=== PATIENT | female | born 2000 | race Two or more races ===

== ENCOUNTER 2025-06-08 11:47 | Outpatient (CLI) | payer SELFPAY ==
[2025-06-08 15:34] LABS: Hematocrit 39.2 % (36.0-46.0); Hemoglobin 13.3 g/dL (12.2-16.2); Mean Corpuscular Hemoglobin 29.4 pg (28.0-32.0); Mean Corpuscular Volume 86.9 fL (80.0-100.0); Nucleated Red Blood Cells % 0.4 %
[2025-06-08 16:06] LABS: Thyroid Stimulating Hormone 2.41 uIU/mL (0.55-4.78)
[2025-06-08 16:14] LABS: Beta HCG, Quantitative 13212.9 mIU/mL (1.5-4.2)
[2025-06-08 16:20] LABS: Amphetamine Screen, Urine Neg (NEGATIVE); Barbiturate Scree,Urine Neg (NEGATIVE); Benzodiazephine Screen, Urine Neg (NEGATIVE); Cannabinoid Screen, Urine Neg (NEGATIVE); Cocaine Screen, Urine Neg (NEGATIVE); Opiate Scree,Urine Neg (NEGATIVE); Phencyclidine Screen, Urine Neg (NEGATIVE)
[2025-06-10 05:08] LABS: Chlamydia Trachomatis, NAA Negative (Negative); Neisseria gonorrhoeae, NAA Negative (Negative)
== END 2025-06-09 17:00 | disposition home or self-care (01) ==
LOC: LAB 11:47
PROVIDERS: ATTEND Obstetrics & Gynecology
DX: O23.40 Unspecified infection of urinary tract in pregnancy, unspecified trimester (principal); N39.0 Urinary tract infection, site not specified; Z31.430 Encounter of female for testing for genetic disease carrier status for procreative management; Z11.3 Encounter for screening for infections with a predominantly sexual mode of transmission; Z20.09 Contact with and (suspected) exposure to other intestinal infectious diseases; Z3A.00 Weeks of gestation of pregnancy not specified
CPT/HCPCS: 36415; 80307; 83036; 84144; 84443; 84702; 85025; 86703; 86762; 86780; 86787; 86850; 86900; 86901; 87086; 87340

== ENCOUNTER 2025-06-20 09:51 | Outpatient (CLI) | payer SELFPAY | END 2025-06-20 17:00 | disposition home or self-care (01) | LOC: LAB 09:51 | PROVIDERS: ATTEND Obstetrics & Gynecology | DX: O23.40 Unspecified infection of urinary tract in pregnancy, unspecified trimester (principal); N39.0 Urinary tract infection, site not specified; Z11.3 Encounter for screening for infections with a predominantly sexual mode of transmission; Z31.430 Encounter of female for testing for genetic disease carrier status for procreative management; Z20.09 Contact with and (suspected) exposure to other intestinal infectious diseases; Z3A.00 Weeks of gestation of pregnancy not specified | CPT/HCPCS: 82951 ==

== ENCOUNTER → 2025-07-20 | Outpatient (CLI) | payer SELFPAY ==
[2025-07-20 15:16] LABS: Hematocrit 37.0 % (36.0-46.0); Hemoglobin 12.9 g/dL (12.2-16.2); Mean Corpuscular Hemoglobin 29.9 pg (28.0-32.0); Mean Corpuscular Volume 86.0 fL (80.0-100.0); Nucleated Red Blood Cells % 0.1 %
[2025-07-22 03:07] LABS: Chlamydia Trachomatis, NAA Negative (Negative); Neisseria gonorrhoeae, NAA Negative (Negative)
== END | disposition home or self-care (01) ==
LOC: LAB 14:25
DX: Z34.80 Encounter for supervision of other normal pregnancy, unspecified trimester (principal); Z3A.00 Weeks of gestation of pregnancy not specified
CPT/HCPCS: 36415; 85025; 86780

== ENCOUNTER 2025-07-25 11:01 | Observation (INO) | payer SELFPAY ==
[2025-07-25] MEDS ORDERED: PREN-96 PO (11:22)
--- NOTE | 2025-07-25 12:11 | DVH ---
BIOPHYSICAL PROFILE HISTORY: GDMA1 TECHNIQUE: Multiple real-time grayscale sonographic images through the gravid uterus of the fetus with duplex Doppler color flow. FINDINGS: BIOPHYSICAL PROFILE: breathing score: 2 movement score: 2 tone score: 2 Quantitative LAURENT score: 2 Total score: 8 out of 8 Single live intrauterine . heart rate of 137 beats per minute. Cephalic lie. Placenta anteriorly positioned. LAURENT 10.7 cm. IMPRESSION: Biophysical profile score: 8 out of 8
--- NOTE | 2025-07-25 21:48 | DVHDS2 ---
Discharge Summary Date of Admission Jul 25, 2025 at 11:01 Date of Discharge: Jul 25, 2025 Admitting Diagnosis GDM A2 36 weeks here for routine NST BPP both performed performed and reassuring. Labs/Diagnostic Data: Laboratory Results Test 07/25/25 12:16 POC Glucose 82 mg/dl (70-106) Brief Hx & Hospital Course: NST BPP were performed reassuring Condition at Discharge: Good Final Diagnosis/Problems List GDM A2 36+ weeks Discharge Disposition: Home Discharge Instruct/Medications Diet: Consistent carbohydrate Activity: No Restrictions, As Tolerated Activity comment: Kick counts labor precautions carbohydrate precautions Medications: Resume home meds Scheduled Vit W/ Ferrous Fumara ( One Daily), 1 TAB PO DAILY, (Reported) Discharge Statement: "Patient was advised to return to the ER or call 911 if any headaches, dizziness, shortness of breath, chest pain, abdominal pain, bleeding, fevers, or worsening of medical condition. Patient was counseled about treatment plan, medications, possible side effects, patientverbalized understanding. All questions were answered to the best of my ability. This discharge took greater then 30 minutes in planning, reviewing documentation, counseling the patient, and discussing with other team members." ASSESSMENT ASSESSMENT Assessment Visit Coding OBGYN Date of Service: Jul 25, 2025 Billing Provider: PATEL GHOTRA DO PHOTOENGRAVING RETOUCHER Common Visit Codes: [id number] INP/OBS CARE(HIGH), 36716-BYZ/OBS SAME DATE (LOW), 10756-POX/OBS SAME DATE (MOD) PHOTOENGRAVING RETOUCHER Procedure Codes: 32150-25- NON-STRESS TEST PATEL GHOTRA DO Jul 25, 2025 21:48
== END 2025-07-25 12:42 | disposition home or self-care (01) ==
LOC: LDRP 11:01
PROVIDERS: ADMIT Obstetrics & Gynecology; ATTEND Obstetrics & Gynecology
DX: O24.419 Gestational diabetes mellitus in pregnancy, unspecified control (principal); Z3A.36 36 weeks gestation of pregnancy; Z98.890 Other specified postprocedural states
CPT/HCPCS: 76818; 81002; 82962; 94760; G0378; 59025; 76819

== ENCOUNTER 2025-07-28 06:26 | Observation (INO) | payer SELFPAY ==
[~2025-07-28 06:26] MED LIST: PREN-96 PO
--- NOTE | 2025-07-28 11:24 | DVH ---
BIOPHYSICAL PROFILE HISTORY: GDMA1 TECHNIQUE: Multiple transabdominal real-time grayscale sonographic images through the gravid uterus of the fetus with duplex Doppler color flow and M-mode spectral analysis FINDINGS: BIOPHYSICAL PROFILE: breathing score: 2 movement score: 2 tone score: 2 Quantitative LAURENT score: 2 (LAURENT: 12.8 Cm.) Total score: 8 The cervix was not seen Single live fetus in cephalic presentation. heart rate 141 beats per minute. Grade II anterior placenta without previa or abruption IMPRESSION: Biophysical profile score: 8/8
[2025-07-28] MEDS ORDERED: METF-490 PO (12:20)
--- NOTE | 2025-07-28 14:59 | DVHDS2 ---
Physician Discharge Progress N Final Diagnosis: GDMA2 37WKS Operations or Procedures: Operations or Procedures NST REACTIVE REVIWED,SONO Condition on Discharge: Good Disposition: Home Discharge Instructions: Diet: Consistent carbohydrate Activity: No Restrictions, As Tolerated Medications: NA Follow Up Care: Specialist: 3D Discharge Statement: "Patient was advised to return to the ER or call 911 if any headaches, dizziness, shortness of breath, chest pain, abdominal pain, bleeding, fevers, or worsening of medical condition. Patient was counseled about treatment plan, medications, possible side effects, patientverbalized understanding. All questions were answered to the best of my ability. This discharge took greater then 30 minutes in planning, reviewing documentation, counseling the patient, and discussing with other team members." Visit Coding OBGYN Date of Service: Jul 28, 2025 Billing Provider: DOLLY STARK DO DIRECTOR OF CASINO Common Visit Codes: [id number] OBS CARE (HIGH) DIRECTOR OF CASINO Procedure Codes: 55089-05- NON-STRESS TEST DOLLY STARK DO Jul 28, 2025 14:59
== END 2025-07-28 12:31 | disposition home or self-care (01) ==
LOC: UNDOADMOB 10:10 → LDRP 10:10
PROVIDERS: ADMIT Obstetrics & Gynecology; ATTEND Obstetrics & Gynecology
DX: O24.419 Gestational diabetes mellitus in pregnancy, unspecified control (principal); Z3A.37 37 weeks gestation of pregnancy; Z98.890 Other specified postprocedural states
CPT/HCPCS: 76818; 81002; 82948; 82962; 94760; G0378; 59025; 76819

== ENCOUNTER 2025-08-01 00:58 | Observation (INO) | payer SELFPAY ==
[~2025-08-01 00:58] MED LIST changes: +METF-490 PO
--- NOTE | 2025-08-01 12:21 | DVHDS2 ---
Physician Discharge Progress N Final Diagnosis: gdm 37wks Operations or Procedures: Operations or Procedures nst reactive reviwqed,sono Condition on Discharge: Good Disposition: Home Discharge Instructions: Diet: Consistent carbohydrate Activity: No Restrictions, As Tolerated Follow Up/Referral: as scheduled Medications: na Follow Up Care: Specialist: 4d Discharge Statement: "Patient was advised to return to the ER or call 911 if any headaches, dizziness, shortness of breath, chest pain, abdominal pain, bleeding, fevers, or worsening of medical condition. Patient was counseled about treatment plan, medications, possible side effects, patientverbalized understanding. All questions were answered to the best of my ability. This discharge took greater then 30 minutes in planning, reviewing documentation, counseling the patient, and discussing with other team members." Visit Coding OBGYN Date of Service: Aug 01, 2025 Billing Provider: DOLLY STARK DO ENVIRONMENTAL MONITORING SPECIALIST Common Visit Codes: [id number] OBS CARE (HIGH) ENVIRONMENTAL MONITORING SPECIALIST Procedure Codes: 96199-64- NON-STRESS TEST DOLLY STARK DO Aug 01, 2025 12:21
--- NOTE | 2025-08-01 13:50 | DVH ---
BIOPHYSICAL PROFILE HISTORY: GDMA2 TECHNIQUE: Multiple transabdominal real-time grayscale sonographic images through the gravid uterus of the fetus with duplex Doppler color flow and M-mode spectral analysis FINDINGS: BIOPHYSICAL PROFILE: breathing score: 2 movement score: 2 tone score: 2 Quantitative LAURENT score: 2 (LAURENT: 12.4 Cm.) Total score: 8 The cervix not well visualized Single live fetus in cephalic presentation. heart rate 140 beats per minute. Grade 2 anterior placenta without previa or abruption IMPRESSION: Biophysical profile score: 8
== END 2025-08-01 12:19 | disposition home or self-care (01) ==
LOC: UNDOADMOB 11:11 → LDRP 11:11
PROVIDERS: ADMIT Obstetrics & Gynecology; ATTEND Obstetrics & Gynecology
DX: O24.419 Gestational diabetes mellitus in pregnancy, unspecified control (principal); Z3A.37 37 weeks gestation of pregnancy; Z98.890 Other specified postprocedural states
CPT/HCPCS: 76818; 81002; 82948; 82962; 94760; G0378; 59025; 76819

== ENCOUNTER 2025-08-06 04:47 | Observation (INO) | payer SELFPAY ==
[~2025-08-06] VITALS: Ht 163 cm; Wt 81.6 kg
--- NOTE | 2025-08-06 13:15 | DVH ---
BIOPHYSICAL PROFILE HISTORY: GDMA2 TECHNIQUE: Multiple transabdominal real-time grayscale sonographic images through the gravid uterus of the fetus with duplex Doppler color flow and M-mode spectral analysis FINDINGS: BIOPHYSICAL PROFILE: breathing score: 2 movement score: 2 tone score: 2 Quantitative LAURENT score: 2 (LAURENT: 14.8 cm, mvp: 5.9cm.) Total score: 8/8 The cervix N/V Single live fetus in cephalic presentation. heart rate 127 beats per minute. Anterior Grade 2 placenta without previa or abruption Single live fetus at 38 weeks 2 days Biophysical profile score 8/8 corresponding to an AJITH of 08/18/2025. Estimated weight not calculated g IMPRESSION: 1. Biophysical profile score: 8/8 2. FHR: 127 bpm. 3. No additional measurements given.
== END 2025-08-06 12:48 | disposition home or self-care (01) ==
LOC: LDRP 11:29
PROVIDERS: ADMIT Obstetrics & Gynecology; ATTEND Obstetrics & Gynecology
DX: O24.419 Gestational diabetes mellitus in pregnancy, unspecified control (principal); Z3A.38 38 weeks gestation of pregnancy; Z98.890 Other specified postprocedural states
CPT/HCPCS: 76818; 81002; 82948; 82962; 94760; A4649; G0378; 59025; 76819

== ENCOUNTER 2025-08-09 06:25 | Observation (INO) | payer SELFPAY ==
--- NOTE | 2025-08-09 14:44 | DVH ---
BIOPHYSICAL PROFILE HISTORY: GDMA2 TECHNIQUE: Multiple transabdominal real-time grayscale sonographic images through the gravid uterus of the fetus with duplex Doppler color flow and M-mode spectral analysis FINDINGS: BIOPHYSICAL PROFILE: breathing score: 2 movement score: 2 tone score: 2 Quantitative LAURENT score: 2 (LAURENT: 11 Cm.) Total score: 8 The cervix was not seen Single live fetus in cephalic presentation. heart rate 131 beats per minute. Grade II anterior placenta without previa or abruption IMPRESSION: Biophysical profile score: 8/8
--- NOTE | 2025-08-09 15:13 | DVHDS2 ---
Physician Discharge Progress N Final Diagnosis: testing for GDM, A2 Operations or Procedures: Operations or Procedures 25yo IUP@38.5wks VSS NST reactive FKC/PTL/PreE precautions reviewed. Dr. Chin consulted, agrees with POC. Other Interventions Other Interventions [address] [address] Ph: [phone] DIAGNOSTIC IMAGING Diagnostic Imaging Report : [id number] Signed PATIENT: ROSLYN KEITACCT: [id number] UNIT: [id number] : 2000 LOC: [facility] ROOM / BED: [facility] / AGE / SEX: 25 / F ADM STATUS: ADM IN SERVICE 31 ORDERING PHYSICIAN: DOLLY CHIN DO PROCEDURE(s): BPP - BIOPHYSICAL PROFILE REASON: GDMA2 ORDER NUMBER(s): [id number], ACCESSION NUMBER(s): [id number] BIOPHYSICAL PROFILE HISTORY: GDMA2 TECHNIQUE: Multiple transabdominal real-time grayscale sonographic images t hrough the gravid uterus of the fetus with duplex Doppler color flow and M-mode spectral analysis FINDINGS: BIOPHYSICAL PROFILE: breathing score: 2 movement score: 2 tone score: 2 Quantitative LAURENT score: 2 (LAURENT: 11 Cm.) Total score: 8 The cervix was not seen Single live fetus in cephalic presentation. heart rate 131 beats per minute. Grade II anterior placenta without previa or abruption IMPRESSION: Biophysical profile score: 8/8 ATED BY: ELLIS PANG MD DICTATED DATE/TIME: 08/09/25 144 SIGNED BY: ELLIS PANG MD SIGNED DATE/TIME: 08/09/25 144 CC: Condition on Discharge: Stable Disposition: Home Discharge Instructions: Diet: Consistent carbohydrate Activity: No Restrictions, As Tolerated Medications: SEE med list Follow Up Care: Specialist: f/u in 3 days Discharge Statement: "Patient was advised to return to the ER or call 911 if any headaches, dizziness, shortness of breath, chest pain, abdominal pain, bleeding, fevers, or worsening of medical condition. Patient was counseled about treatment plan, medications, possible side effects, patientverbalized understanding. All questions were answered to the best of my ability. This discharge took greater then 30 minutes in planning, reviewing documentation, counseling the patient, and discussing with other team members." Visit Coding OBGYN Date of Service: Aug 09, 2025 Billing Provider: HAILEY PALUMBO CNM AIR BRAKE WORKER Common Visit Codes: [id number] OBS CARE (HIGH) AIR BRAKE WORKER Procedure Codes: 90780-86- NON-STRESS TEST HAILEY PALUMBO CNM Aug 09, 2025 15:13
== END 2025-08-09 15:22 | disposition home or self-care (01) ==
LOC: LDRP 13:20 → UNDOADMOB 13:20 → LDRP 13:36
PROVIDERS: ADMIT Obstetrics & Gynecology; ATTEND Obstetrics & Gynecology
DX: O24.419 Gestational diabetes mellitus in pregnancy, unspecified control (principal)
CPT/HCPCS: 76818; 81002; 82948; 82962; A4649; G0378; 59025; 76819

== ENCOUNTER 2025-08-12 05:50 | Observation (INO) | payer SELFPAY ==
[~2025-08-12] VITALS: Ht 149.9 cm; Wt 81.6 kg
[2025-08-12] MEDS ORDERED: METF-370 PO (12:19)
--- NOTE | 2025-08-12 13:25 | DVH ---
BIOPHYSICAL PROFILE HISTORY: GDMA2 Comparison Study: US BIOPHYSICAL PROFILE on DOS: 08/09/25, US BIOPHYSICAL PROFILE on DOS: 08/06/25, US BIOPHYSICAL PROFILE on DOS: 08/01/25, US BIOPHYSICAL PROFILE on DOS: 07/28/25, US BIOPHYSICAL PROFILE on DOS: 07/25/25 TECHNIQUE: Multiple real-time grayscale sonographic images through the gravid uterus of the fetus with duplex Doppler color flow and M-mode spectral analysis FINDINGS: BIOPHYSICAL PROFILE: breathing score: 2 movement score: 2 tone score: 2 Quantitative LAURENT score: 2 (LAURENT: 10.47 Cm.) Total score: 8 The cervix is not evaluated Single live fetus in is not evaluated presentation. heart rate 133 beats per minute. Grade 3, anterior placenta without previa or abruption IMPRESSION: Biophysical profile score: 8
--- NOTE | 2025-08-12 17:56 | DVHDS2 ---
Physician Discharge Progress N Final Diagnosis: GDMA2 Secondary Diagnosis: Encounter for surveillance Operations or Procedures: Operations or Procedures NST/BPP/LAURENT all normal, reactive PATIENT: ROSLYN KEITACCT: [id number] UNIT: [id number] : 2000 LOC: [facility] ROOM / BED: [facility] / A AGE / SEX: 25 / F ADM STATUS: ADM IN SERVICE 1136 ORDERING PHYSICIAN: ANA BULLOCK DO PROCEDURE(s): BPP - BIOPHYSICAL PROFILE REASON: GDMA2 ORDER NUMBER(s): [id number], ACCESSION NUMBER(s): [id number] BIOPHYSICAL PROFILE HISTORY: GDMA2 Comparison Study: US BIOPHYSICAL PROFILE on DOS: 08/09/25, US BIOPHYSICAL PROFILE on DOS: 08/06/25, US BIOPHYSICAL PROFILE on DOS: 08/01/25, US BIOPHYSICAL PROFILE on DOS: 07/28/25, US BIOPHYSICAL PROFILE on DOS: 07/25/25 TECHNIQUE: Multiple real-time grayscale sonographic images through the gravid uterus of the fetus with duplex Doppler color flow and M-mode spectral analysis FINDINGS: BIOPHYSICAL PROFILE: breathing score: 2 movement score: 2 tone score: 2 Quantitative LAURENT score: 2 (LAURENT: 10.47 Cm.) Total score: 8 The cervix is not evaluated Single live fetus in is not evaluated presentation. heart rate 133 beats per minute. Grade 3, anterior placenta without previa or abruption IMPRESSION: Biophysical profile score: 8 Condition on Discharge: Stable Disposition: Home Discharge Instructions: Diet: Consistent carbohydrate Activity: No Restrictions, As Tolerated Follow Up/Referral: as scheduled Medications: NA Follow Up Care: Discharge Statement: "Patient was advised to return to the ER or call 911 if any headaches, dizziness, shortness of breath, chest pain, abdominal pain, bleeding, fevers, or worsening of medical condition. Patient was counseled about treatment plan, medications, possible side effects, patientverbalized understanding. All questions were answered to the best of my ability. This discharge took greater then 30 minutes in planning, reviewing documentation, counseling the patient, and discussing with other team members." Visit Coding OBGYN Date of Service: Aug 12, 2025 Billing Provider: ANA BULLOCK DO ELECTROMAGNET CRANE OPERATOR Common Visit Codes: 22388-YDH/OBS SAME DATE (HIGH) ELECTROMAGNET CRANE OPERATOR Procedure Codes: 02582-32- NON-STRESS TEST ANA BULLOCK DO Aug 12, 2025 17:56
== END 2025-08-12 14:07 | disposition home or self-care (01) ==
LOC: UNDOADMOB 11:20 → LDRP 11:20 → UNDODISOB 14:07
PROVIDERS: ADMIT Obstetrics & Gynecology; ATTEND Obstetrics & Gynecology
DX: O24.419 Gestational diabetes mellitus in pregnancy, unspecified control (principal); Z3A.39 39 weeks gestation of pregnancy; Z98.890 Other specified postprocedural states
CPT/HCPCS: 76818; 81002; 82962; 94760; A4649; G0378; 59025; 76819

== ENCOUNTER 2025-08-16 14:08 | Inpatient (IN) | payer SELFPAY ==
[~2025-08-16] VITALS: Ht 150 cm; Wt 86.2 kg
[~2025-08-16 14:08] MED LIST changes: +METF-370 PO; -METF-490 PO
--- NOTE | 2025-08-16 15:08 | DVH ---
BIOPHYSICAL PROFILE HISTORY: GDMA2 TECHNIQUE: Multiple transabdominal real-time grayscale sonographic images through the gravid uterus of the fetus with duplex Doppler color flow and M-mode spectral analysis FINDINGS: BIOPHYSICAL PROFILE: breathing score: 2 movement score: 2 tone score: 2 Quantitative LAURENT score: 2 (LAURENT: 9.6 Cm.) Total score: 8 The cervix was not seen Single live fetus in cephalic presentation. heart rate 138 beats per minute. Grade I anterior placenta without previa or abruption IMPRESSION: Biophysical profile score: 8
[2025-08-16] MEDS ORDERED: BUTORPHANOL TARTRATE 2 MG/1 ML VIAL IV PRN ×2 (16:15)
[2025-08-16 16:54] LABS: Hematocrit 41.7 % (36.0-46.0); Hemoglobin 14.3 g/dL (12.2-16.2); Mean Corpuscular Hemoglobin 30.0 pg (28.0-32.0); Mean Corpuscular Volume 87.4 fL (80.0-100.0); Nucleated Red Blood Cells % 0.1 %
[2025-08-16 17:09] LABS: INR 0.9 (0.9-1.15); Partial Thromboplastin Time 26.5 SEC (24.5-34.5); Prothrombin Time 9.6 sec (9.3-11.8)
[2025-08-16 17:10] LABS: Alanine Aminotransferase 14 U/L (7-40); Albumin 4.2 g/dL (3.2-4.8); Anion Gap 13 (5-15); BUN/Creatinine Ratio 11.1 (10.0-20.0); Bilirubin, Total 0.3 mg/dL (0.2-1.0); Calcium 9.7 mg/dL (8.7-10.4); Carbon Dioxide 20 mmol/L (20-31); Chloride 106 mmol/L (98-107); Glucose 87 mg/dL (74-106); Potassium 3.9 mmol/L (3.5-5.1); Sodium 139 mmol/L (136-145); Total Protein 7.4 g/dL (5.7-8.2)
[2025-08-16 17:11] LABS: Alkaline Phosphatase 192 U/L (46-116); Blood Urea Nitrogen 7 mg/dL (9-23)
[2025-08-16 17:20] LABS: Urine Protein, UAD 1+ (Negative)
[2025-08-16 17:35] LABS: Amphetamine Screen, Urine Neg (NEGATIVE); Barbiturate Scree,Urine Neg (NEGATIVE); Benzodiazephine Screen, Urine Neg (NEGATIVE); Cannabinoid Screen, Urine Neg (NEGATIVE); Cocaine Screen, Urine Neg (NEGATIVE); Opiate Scree,Urine Neg (NEGATIVE); Phencyclidine Screen, Urine Neg (NEGATIVE)
--- NOTE | 2025-08-16 17:41 | DVHHP2 ---
OB CC & HPI Date Date of Admission: Aug 16, 2025 Patient Identification: : 1 Para: 0 EDC: Aug 19, 2025 EGA: 39.4 weeks Chief Complaints: Reason for admission: induction of labor Admission Nurse Assessment Rev: Yes History of Present Complaints 25yo IUP@39.4wks. Pt admitted for IOL for GDMA2. Pt agrees to plan of care and wants an epidural later. Denies UCs/LOF/VB/ESCALONA/vision changes/RUQ pain. Endorses +FM. PNC: Late to care at [facility], previously received adequate care in [place], PNC complicated by GDMa2 dating based on LMP c/w 29w6d sono, GBS negative. Past Medical History Cardiac: No pertinent Hx Pulmonary: No pertinent Hx Central Nervous System: No pertinent Hx GI: No pertinent Hx Hemotology/Oncology: No pertinent Hx Hepatobiliary: No pertinent Hx Psychiatric: No pertinent Hx Musculoskeletal: No pertinent Hx Rheumotologic: No pertinent Hx Infectious Disease: No peritnent Hx ENT: No pertinent Hx Renal/: No pertinent Hx Endocrine: No pertinent Hx Dermatology: No pertinent Hx Others liposuction and buttocks implants at 6 weeks gestation in [place] OB History OB History Care: [facility] Care Ultrasounds: Normal mid trimester US Obstetrical Complications: Gestational Diabetes Medical Complications: None Allergies: Coded Allergies: NO KNOWN ALLERGIES (Unverified , 08/06/25) Home Meds Reported Medications Metformin Hydrochloride (Metformin Hcl) 500 Mg Tab, 500 MG PO DAILY for 30 Days, MG 08/12/25 Vit W/ Ferrous Fumara ( One Daily) Daily Tab, 1 TAB PO DAILY, #90 TAB 3 Refills 07/25/25 Current Medications Current Medications Medications (Trade) Dose Ordered Sig/Fidelia Route PRN Reason Start Time Stop Time Status Last Admin Lactated Ringer's 1,000 ml @ 125 mls/hr Q8H IV 08/16/25 16:15 Witch Tashia (Tucks) 1 pad PRN PRN TOP PERINEAL AREA DISCOMFORT 08/16/25 16:15 Sodium Lauryl Sulfate (Phisoderm) 240 ml PRN PRN TOP PERINEAL AREA DISCOMFORT 08/16/25 16:15 Benzocaine (Dermoplast) 1 applic PRN PRN TOP PERINEAL AREA DISCOMFORT 08/16/25 16:15 Butorphanol Tartrate (Stadol Injection) 1 mg Q4HPRN PRN IV MODERATE PAIN (4-6 PAIN SCALE) 08/16/25 16:15 Butorphanol Tartrate (Stadol Injection) 2 mg Q4HPRN PRN IV SEVERE PAIN (7-10 PAIN SCALE) 08/16/25 16:15 Misoprostol (Cytotec) 50 mcg Q4HPRN PRN PO CERVICAL RIPENING 08/16/25 16:15 Lidocaine HCl (Xylocaine) 20 ml ONCE PRN IJ PERINEAL AREA DISCOMFORT 08/16/25 16:15 Family & Social History Family/Social History Past Family/Social History: denies Blood Type: O+ Rubella: immune RPR/VDRL: Negative GBS Status: Negative HBsAG: Negative Review of Systems Constitutional: No symptom reported Ears, Nose, & Throat: No symptom reported Eyes: No symptom reported Pulmonary/Respiratory: No symptom reported Cardiovascular: No symptom reported Gastrointestinal: No symptom reported Genitourinary: No symptom reported Musculoskeletal: No symptom reported Skin: No symptom reported Psychiatric: No symptom reported Endocrine: No symptom reported Hemotologic/Lymphatic: No symptom reported OB Admission Exam Physical Exam Vitals: VSS, see cpn EFW in office last week 7lbs 5oz, vertex HEENT: TMs Normal, Fontanelles Normal, Nasal Mucosa Normal, Eyes non-injected, Oropharynx Normal, PERRLA, Moist Membranes, EOMI Heart: Rhythm Normal Lungs: Clear Abdomen: Gravid Extremities: Normal Reflexes: Normal Pelvic Exam: Done by RN on admission FT, thick, -2 Cervical Dilatation: Fingertip Effacement: 0% Station: -2 Membranes: Intact Heart Rate: 140's Accelerations: Accelerations Present Decelerations: No Decelerations Short Term Variability: Present Sports Marketing Coordinator Variability: Average (6-25) Contractions on Admission: None OB Plan Plan Admitting Diagnosis: Induction of Labor for GDM, A2 Plan: Induction Induction Methd: Misoprostol protocol Other Plan: A: 25yo IUP@39.4wks Induction of Labor GDM, A2 Category I EFM Intact Membranes GBS negative P: Admit to L&D Informed consent obtained Discussed risks, benefits, alternatives of IOL for GDM, A2 with pt. Pt consents to IOL with cytotec. Blood glucose checks q4hrs then in active labor q2hrs. monitoring per order Routine labs ordered Pain mgmt PRN Frequent position changes in and out of bed encouraged Limit SVE unless necessary Intrauterine resuscitation PRN Anticipate BESS is co-managing care with Dr. Chin. Visit Coding OBGYN Date of Service: Aug 16, 2025 Billing Provider: HAILEY PALUMBO CNM LAWN CARE WORKER Common Visit Codes: [id number] INP/OBS CARE (HIGH) LAWN CARE WORKER Procedure Codes: 16371-84- NON-STRESS TEST RADHA DOHERTY STUDENTMDW Aug 16, 2025 17:41
[2025-08-16] MEDS: WITCH HAZEL-GLYCERIN PAD TOP PRN (17:47)
[2025-08-16] MEDS: PHISODERM TOP SOLN 240ML BTL TOP PRN (17:47)
[2025-08-16] MEDS: DERMOPLAST 60ML BOTTLE TOP PRN (17:47)
[2025-08-16] MEDS: LACTATED RINGER'S 1,000 ML IV SCH (17:48)
[2025-08-16] MEDS: LACT. RINGERS/OXYTOCIN 20UNITS 500 ML IV ONE ×2 (18:15→18:45)
--- NOTE | 2025-08-16 21:58 | DVHPN2 ---
OB Labor Progress Note Date and Time Seen Date Seen: Aug 16, 2025 Time Seen: 21:45 Subjective Patient reports: No new complaints Subjective Comment 25yo IUP@39.4wks. No new complaints, consents to cervical balloon if indicated. Would like partner in room when placed. Objective Vital Signs VSS, See cpn Monitoring Method Monitoring Method: External Heart Rate Heart Rate Baseline: 135 Heart Rate Variability: Moderate Presence of FHR Accelerations: Yes Presence of FHR Decelerations: No Changes in Trends of Patterns: No Are all 5 Components of the FH: Yes Contractions Contractions Frequency: Occasional Duration of Contraction: 60 Contractions Intensity: Mild Contractions Resting Tone: Relaxed Membranes Membranes: Intact Vaginal Exam Vag Exam Deferred: No (fingertip (CRB not an option at this time)) Vaginal Exam Effacement: 0 Vaginal Exam Station: -3 Vaginal Exam Presentation: VTX Vaginal Exam Show: None Medications Medications - Pitocin: No Medications - Pain Medications: PRN Medication - Epidural: No Medication - Other Cytotec PO 50MCG x1 Lab Results Lab Results Current Medications Medications (Trade) Dose Ordered Sig/Fidelia Start Time Stop Time Status Last Admin Dose Admin Lactated Ringer's 1,000 ml @ 125 mls/hr Q8H 08/16/25 16:15 08/16/25 17:48 125 MLS/HR Juanito Lao (Tucks) 1 pad PRN PRN 08/16/25 16:15 08/16/25 17:47 1 PAD Sodium Lauryl Sulfate (Phisoderm) 240 ml PRN PRN 08/16/25 16:15 08/16/25 17:47 240 ML Benzocaine (Dermoplast) 1 applic PRN PRN 08/16/25 16:15 08/16/25 17:47 1 APPLIC Butorphanol Tartrate (Stadol Injection) 1 mg Q4HPRN PRN 08/16/25 16:15 Butorphanol Tartrate (Stadol Injection) 2 mg Q4HPRN PRN 08/16/25 16:15 Misoprostol (Cytotec) 50 mcg Q4HPRN PRN 08/16/25 16:15 08/16/25 21:56 50 MCG Lidocaine HCl (Xylocaine) 20 ml ONCE PRN 08/16/25 16:15 Oxytocin 500 ml @ 999 mls/hr Q31M ONCE 08/16/25 18:15 08/16/25 18:45 DC Oxytocin 500 ml @ 125 mls/hr Q4H ONCE 08/16/25 18:45 08/16/25 22:44 Laboratory Tests Test 08/16/25 18:59 08/16/25 16:23 08/16/25 14:10 Range/Units POC Glucose 104 70-106 mg/dl White Blood Count 10.0 4.4-10.8 10^3/uL Red Blood Count 4.77 4.0-5.20 10^6/uL Hemoglobin 14.3 12.2-16.2 g/dL Hematocrit 41.7 36.0-46.0 % Mean Corpuscular Volume 87.4 80.0-100.0 fL Mean Corpuscular Hemoglobin 30.0 28.0-32.0 pg Mean Corpuscular Hemoglobin Concent 34.3 32.0-36.0 g/dL Red Cell Distribution Width 13.6 11.8-14.3 % Platelet Count 292 140-450 10^3/uL Mean Platelet Volume 9.4 6.9-10.8 fL Neutrophils (%) (Auto) 78.2 37.0-80.0 % Lymphocytes (%) (Auto) 16.2 10.0-50.0 % Monocytes (%) (Auto) 4.9 0.0-12.0 % Eosinophils (%) (Auto) 0.5 0.0-7.0 % Basophils (%) (Auto) 0.2 0.0-2.0 % Neutrophils # (Auto) 7.8 1.6-8.6 10 ^3/uL Lymphocytes # (Auto) 1.6 0.4-5.4 10 ^3/uL Monocytes # (Auto) 0.5 0-1.3 10 ^3/uL Eosinophils # (Auto) 0 0-0.8 10 ^3/uL Basophils # (Auto) 0 0-0.2 10 ^3/uL Nucleated Red Blood Cells 0.1 % Prothrombin Time 9.6 9.3-11.8 sec Prothrombin Time INR 0.90 0.9-1.15 Activated Partial Thromboplast Time 26.5 24.5-34.5 SEC Sodium Level 139 136-145 mmol/L Potassium Level 3.9 3.5-5.1 mmol/L Chloride Level 106 98-107 mmol/L Carbon Dioxide Level 20 20-31 mmol/L Anion Gap 13 5-15 Blood Urea Nitrogen 7 L 9-23 mg/dL Creatinine 0.63 0.550-1.02 mg/dL Glomerular Filtration Rate Calc 126 >90 mL/min BUN/Creatinine Ratio 11.1 10.0-20.0 Serum Glucose 87 74-106 mg/dL Calcium Level 9.7 8.7-10.4 mg/dL Total Bilirubin 0.3 0.2-1.0 mg/dL Aspartate Amino Transferase (AST) 20 13-40 U/L Alanine Aminotransferase (ALT) 14 7-40 U/L Alkaline Phosphatase 192 H 46-116 U/L Total Protein 7.4 5.7-8.2 g/dL Albumin 4.2 3.2-4.8 g/dL Treponema pallidum Antibody Non-reactive Negative Hepatitis C Antibody Negative Negative Urine Color Yellow Yellow Urine Clarity Turbid H Clear Urine pH 6.5 5.0-9.0 Urine Specific [place] 1.020 1.001-1.035 Urine Protein 1+ H Negative Urine Ketones Negative Negative Urine Blood Negative Negative /uL Urine Nitrite Negative Negative Urine Bilirubin Negative Negative Urine Urobilinogen Normal Negative mg/dL Urine Leukocyte Esterase 1+ Negative /uL Urine RBC 2 0 - 4 /hpf Urine Microscopic WBC 3 0-5 /HPF Urine Squamous Epithelial Cells Mod <5 /hpf Urine Bacteria Few H None Seen /hpf Urine Mucus Few None Seen Urine Glucose Normal Normal mg/dL Urine Opiates Screen Neg NEGATIVE Urine Fentanyl Screen Neg NEGATIVE Urine Barbiturates Screen Neg NEGATIVE Urine Phencyclidine Screen Neg NEGATIVE Urine Amphetamines Screen Neg NEGATIVE Urine Benzodiazepines Screen Neg NEGATIVE Urine Cocaine Screen Neg NEGATIVE Urine Cannabinoids Screen Neg NEGATIVE Assessment Assessment A: 25yo IUP@39.4wks Induction of Labor GDM, A2 Category I EFM Intact Membranes GBS negative Plan Plan P: Continue with cytotec PO. Blood glucose checks q4hrs then in active labor q2hrs. monitoring per order Pain mgmt PRN Frequent position changes in and out of bed encouraged Limit SVE unless necessary Intrauterine resuscitation PRN Anticipate CNJade is co-managing care with Dr. Chin. Plan discussed with: Patient Visit Coding OBGYN Date of Service: Aug 16, 2025 Billing Provider: HAILEY PALUMBO CNM NETBACKUP ADMINISTRATOR Common Visit Codes: [id number] INP/OBS CARE(HIGH) RADHA DOHERTY STUDENTMDW Aug 16, 2025 21:58
[2025-08-17] VITALS (18 sets, daily range): BP systolic 110–130; BP diastolic 61–79; PULSE 61–94; RESP 13–20; TEMP 97.9–98.1; O2SAT 94–99
[2025-08-17] MEDS: ONDANSETRON HCL 4 MG/2 ML VIAL IV PRN ×2 (01:22→12:11)
[2025-08-17] MEDS: NALBUPHINE HCL 10 MG/1ml INJECTION IV PRN (01:22)
[2025-08-17] MEDS: LIDOCAINE 2%HCL (LOCAL ANESTH.) INJ 20ML MDV IJ PRN (01:23)
[2025-08-17] MEDS: ceFAZolin 1GM/50ML 50 ML IV SCH ×2 (03:21→11:32)
--- NOTE | 2025-08-17 03:26 | DVHPN2 ---
CNM Labor Progress Note Date and Time Seen Date Seen: Aug 17, 2025 Time Seen: 03:13 Subjective Patient reports: Feels worse Subjective Comment Pt wants epidural, she is in a lot of pain and IV pain medication did not help. Objective Vital Signs VSS, see CPN Monitoring Method Monitoring Method: External Heart Rate Heart Rate Baseline: 115 Heart Rate Variability: Moderate Presence of FHR Accelerations: Yes Presence of FHR Decelerations: Yes Heart Rate Type of Decel: Variable Decelerations Comment on Trends or Patterns: intrauterine resuscitation done Are all 5 Components of the FH: Yes Contractions Contractions Frequency: Other (q2-7 min) Duration of Contraction: 60 Contractions Intensity: Moderate Contractions Resting Tone: Relaxed Membranes Membranes: Ruptured Amniotic Fluid Color: Clear Vaginal Exam Vag Exam Deferred: No (IUPC placed, posteriorly) Vaginal Exam Dilation: 5 Vaginal Exam Effacement: 70 Vaginal Exam Station: -2 Vaginal Exam Presentation: VTX Vaginal Exam Show: Small Medications Medications - Pitocin: No Medications - Pain Medications: PRN Medication - Epidural: No Medication - Other s/p 2 doses of PO cytotec Lab Results Lab Results Vital Signs Date Time Temp Pulse Resp B/P (MAP) Pulse Ox O2 Delivery O2 Flow Rate FiO2 08/17/25 01:22 79 20 132/72 Current Medications Medications (Trade) Dose Ordered Sig/Fidelia Start Time Stop Time Status Last Admin Dose Admin Lactated Ringer's 1,000 ml @ 125 mls/hr Q8H 08/16/25 16:15 08/16/25 17:48 125 MLS/HR Juanito Lao (Tucks) 1 pad PRN PRN 08/16/25 16:15 08/17/25 01:23 1 PAD Sodium Lauryl Sulfate (Phisoderm) 240 ml PRN PRN 08/16/25 16:15 08/17/25 01:23 240 ML Benzocaine (Dermoplast) 1 applic PRN PRN 08/16/25 16:15 08/17/25 01:23 1 APPLIC Butorphanol Tartrate (Stadol Injection) 1 mg Q4HPRN PRN 08/16/25 16:15 Butorphanol Tartrate (Stadol Injection) 2 mg Q4HPRN PRN 08/16/25 16:15 Misoprostol (Cytotec) 50 mcg Q4HPRN PRN 08/16/25 16:15 08/16/25 21:56 50 MCG Lidocaine HCl (Xylocaine) 20 ml ONCE PRN 08/16/25 16:15 08/17/25 01:23 20 ML Oxytocin 500 ml @ 999 mls/hr Q31M ONCE 08/16/25 18:15 08/16/25 18:45 DC Oxytocin 500 ml @ 125 mls/hr Q4H ONCE 08/16/25 18:45 08/16/25 22:44 DC Nalbuphine HCl (Nubain) 10 mg Q4HP PRN 08/17/25 01:15 08/17/25 01:22 10 MG Ondansetron HCl (Zofran) 4 mg Q4HPRN PRN 08/17/25 01:15 08/17/25 01:22 4 MG Cefazolin Sodium 50 ml @ 100 mls/hr Q8HR 08/17/25 03:00 Laboratory Tests Test 08/16/25 22:20 08/16/25 16:23 08/16/25 14:10 Range/Units POC Glucose 99 70-106 mg/dl White Blood Count 10.0 4.4-10.8 10^3/uL Red Blood Count 4.77 4.0-5.20 10^6/uL Hemoglobin 14.3 12.2-16.2 g/dL Hematocrit 41.7 36.0-46.0 % Mean Corpuscular Volume 87.4 80.0-100.0 fL Mean Corpuscular Hemoglobin 30.0 28.0-32.0 pg Mean Corpuscular Hemoglobin Concent 34.3 32.0-36.0 g/dL Red Cell Distribution Width 13.6 11.8-14.3 % Platelet Count 292 140-450 10^3/uL Mean Platelet Volume 9.4 6.9-10.8 fL Neutrophils (%) (Auto) 78.2 37.0-80.0 % Lymphocytes (%) (Auto) 16.2 10.0-50.0 % Monocytes (%) (Auto) 4.9 0.0-12.0 % Eosinophils (%) (Auto) 0.5 0.0-7.0 % Basophils (%) (Auto) 0.2 0.0-2.0 % Neutrophils # (Auto) 7.8 1.6-8.6 10 ^3/uL Lymphocytes # (Auto) 1.6 0.4-5.4 10 ^3/uL Monocytes # (Auto) 0.5 0-1.3 10 ^3/uL Eosinophils # (Auto) 0 0-0.8 10 ^3/uL Basophils # (Auto) 0 0-0.2 10 ^3/uL Nucleated Red Blood Cells 0.1 % Prothrombin Time 9.6 9.3-11.8 sec Prothrombin Time INR 0.90 0.9-1.15 Activated Partial Thromboplast Time 26.5 24.5-34.5 SEC Sodium Level 139 136-145 mmol/L Potassium Level 3.9 3.5-5.1 mmol/L Chloride Level 106 98-107 mmol/L Carbon Dioxide Level 20 20-31 mmol/L Anion Gap 13 5-15 Blood Urea Nitrogen 7 L 9-23 mg/dL Creatinine 0.63 0.550-1.02 mg/dL Glomerular Filtration Rate Calc 126 >90 mL/min BUN/Creatinine Ratio 11.1 10.0-20.0 Serum Glucose 87 74-106 mg/dL Calcium Level 9.7 8.7-10.4 mg/dL Total Bilirubin 0.3 0.2-1.0 mg/dL Aspartate Amino Transferase (AST) 20 13-40 U/L Alanine Aminotransferase (ALT) 14 7-40 U/L Alkaline Phosphatase 192 H 46-116 U/L Total Protein 7.4 5.7-8.2 g/dL Albumin 4.2 3.2-4.8 g/dL Treponema pallidum Antibody Non-reactive Negative Hepatitis C Antibody Negative Negative Urine Color Yellow Yellow Urine Clarity Turbid H Clear Urine pH 6.5 5.0-9.0 Urine Specific [place] 1.020 1.001-1.035 Urine Protein 1+ H Negative Urine Ketones Negative Negative Urine Blood Negative Negative /uL Urine Nitrite Negative Negative Urine Bilirubin Negative Negative Urine Urobilinogen Normal Negative mg/dL Urine Leukocyte Esterase 1+ Negative /uL Urine RBC 2 0 - 4 /hpf Urine Microscopic WBC 3 0-5 /HPF Urine Squamous Epithelial Cells Mod <5 /hpf Urine Bacteria Few H None Seen /hpf Urine Mucus Few None Seen Urine Glucose Normal Normal mg/dL Urine Opiates Screen Neg NEGATIVE Urine Fentanyl Screen Neg NEGATIVE Urine Barbiturates Screen Neg NEGATIVE Urine Phencyclidine Screen Neg NEGATIVE Urine Amphetamines Screen Neg NEGATIVE Urine Benzodiazepines Screen Neg NEGATIVE Urine Cocaine Screen Neg NEGATIVE Urine Cannabinoids Screen Neg NEGATIVE Assessment Assessment A: 25yo IUP@39.5wks Induction of Labor GDM, A2 Category II EFM Intact Membranes GBS negative Plan Plan P: RN to call anesthesia for epidural Amnioinfusion ordered NS 300 ml bolus then 125ml/hr for 1L. Start IV pitocin when Category I EFM Blood glucose checks q4hrs then in active labor q2hrs. monitoring per order Pain mgmt PRN Frequent position changes in bed encouraged Limit SVE unless necessary Intrauterine resuscitation PRN Anticipate BESS is co-managing care with Dr. Chin. Plan discussed with: Patient, Spouse Visit Coding OBGYN Date of Service: Aug 17, 2025 Billing Provider: HAILEY PALUMBO CNM EXTRUSION OPERATOR Common Visit Codes: [id number] INP/OBS CARE(HIGH) HAILEY PALUMBO CNM Aug 17, 2025 03:26
[2025-08-17] MEDS ORDERED: TERBUTALINE SULFATE 1 MG/ML 1ML VIAL SC PRN (03:30)
[2025-08-17] MEDS: LACT. RINGERS/OXYTOCIN 20UNITS 1,000 ML IV SCH (03:30)
[2025-08-17] MEDS: ROPIVACAINE HCL 100 ML ONE (05:46)
--- NOTE | 2025-08-17 05:46 | DVHPN2 ---
OB Labor Progress Note Date and Time Seen Date Seen: Aug 17, 2025 Time Seen: 05:25 Subjective Patient reports: Feels better Subjective Comment 25yo IUP@39.5.wks continues to labor. Epidural placed, patient states pain level is better, and cannot feel contractions. Objective Vital Signs VSS, See cpn Monitoring Method Monitoring Method: Internal (IUPC), External (US) Heart Rate Heart Rate Baseline: 120 Heart Rate Variability: Moderate Presence of FHR Accelerations: Yes Presence of FHR Decelerations: Yes Heart Rate Type of Decel: Early Deceleraions Changes in Trends of Patterns: Yes Are all 5 Components of the FH: Yes Contractions Contractions Frequency: Occasional Duration of Contraction: 60 Contractions Intensity: Moderate Contractions Resting Tone: Relaxed Membranes Membranes: Ruptured Amniotic Fluid Color: Clear Vaginal Exam Vag Exam Deferred: No Vaginal Exam Dilation: 5 Vaginal Exam Effacement: 70 Vaginal Exam Station: -2 Vaginal Exam Presentation: VTX Vaginal Exam Show: None Medications Medications - Pitocin: No Medication - Epidural: Yes Medication - Other s/p 2 doses of cytotec Lab Results Lab Results Vital Signs Date Time Temp Pulse Resp B/P (MAP) Pulse Ox O2 Delivery O2 Flow Rate FiO2 08/17/25 12:00 79 16 96 08/17/25 11:00 97.9 126/71 (89) 97.9 08/17/25 09:37 Room Air 08/17/25 08:41 0 08/17/25 08:41 97 Current Medications Medications (Trade) Dose Ordered Sig/Fidelia Start Time Stop Time Status Last Admin Dose Admin Lactated Ringer's 1,000 ml @ 125 mls/hr Q8H 08/16/25 16:15 08/16/25 17:48 125 MLS/HR Witch Tashia (Tucks) 1 pad PRN PRN 08/16/25 16:15 08/17/25 01:23 1 PAD Sodium Lauryl Sulfate (Phisoderm) 240 ml PRN PRN 08/16/25 16:15 08/17/25 01:23 240 ML Benzocaine (Dermoplast) 1 applic PRN PRN 08/16/25 16:15 08/17/25 01:23 1 APPLIC Butorphanol Tartrate (Stadol Injection) 1 mg Q4HPRN PRN 08/16/25 16:15 08/17/25 10:40 DC Butorphanol Tartrate (Stadol Injection) 2 mg Q4HPRN PRN 08/16/25 16:15 Misoprostol (Cytotec) 50 mcg Q4HPRN PRN 08/16/25 16:15 08/16/25 21:56 50 MCG Lidocaine HCl (Xylocaine) 20 ml ONCE PRN 08/16/25 16:15 08/17/25 01:23 20 ML Oxytocin 500 ml @ 999 mls/hr Q31M ONCE 08/16/25 18:15 08/16/25 18:45 DC Oxytocin 500 ml @ 125 mls/hr Q4H ONCE 08/16/25 18:45 08/16/25 22:44 DC Nalbuphine HCl (Nubain) 10 mg Q4HP PRN 08/17/25 01:15 08/17/25 01:22 10 MG Ondansetron HCl (Zofran) 4 mg Q4HPRN PRN 08/17/25 01:15 08/17/25 09:09 DC 08/17/25 01:22 4 MG Cefazolin Sodium 50 ml @ 100 mls/hr Q8HR 08/17/25 03:00 08/17/25 10:38 DC 08/17/25 03:21 100 MLS/HR Ephedrine Sulfate (ePHEDrine SULFATE) 10 mg PRN ONCE 08/17/25 03:30 08/17/25 03:31 DC Oxytocin 1,000 ml @ 6 ml/hr Q24H 08/17/25 03:30 Terbutaline Sulfate (Brethine Inj) 0.25 mg ONCE PRN 08/17/25 03:30 Diphenhydramine HCl (Benadryl Injection) 25 mg Q4HP PRN 08/17/25 09:00 Ondansetron HCl (Zofran) 4 mg Q4HP PRN 08/17/25 09:00 08/17/25 10:39 DC Naloxone HCl (Narcan) 0.2 mg Q5M PRN 08/17/25 09:00 08/17/25 09:09 DC Hydromorphone HCl (Dilaudid Injection) 0.5 mg Q15M PRN 08/17/25 09:00 08/17/25 09:31 DC Dexamethasone Sodium Phosphate (Decadron Injection) 10 mg PHOTOGRAPHIC LABORATORY SUPERVISOR PRN 08/17/25 09:00 08/17/25 09:08 DC Ketorolac Tromethamine (Toradol Injection) 30 mg Q6HP PRN 08/17/25 09:00 08/22/25 08:59 Ondansetron HCl (Zofran) 4 mg Q4HP PRN 08/17/25 10:00 08/17/25 12:11 4 MG Ephedrine Sulfate (ePHEDrine SULFATE) 10 mg [id number] PRN 08/17/25 10:00 08/18/25 09:59 Acetaminophen (Ofirmev) 1,000 mg Q8HPRN PRN 08/17/25 10:00 08/18/25 09:59 08/17/25 15:27 1,000 MG Cefazolin Sodium 50 ml @ 100 mls/hr Q8H 08/17/25 11:30 08/17/25 11:32 100 MLS/HR Laboratory Tests Test 08/17/25 03:28 08/16/25 16:23 08/16/25 14:10 Range/Units POC Glucose 122 H 70-106 mg/dl White Blood Count 10.0 4.4-10.8 10^3/uL Red Blood Count 4.77 4.0-5.20 10^6/uL Hemoglobin 14.3 12.2-16.2 g/dL Hematocrit 41.7 36.0-46.0 % Mean Corpuscular Volume 87.4 80.0-100.0 fL Mean Corpuscular Hemoglobin 30.0 28.0-32.0 pg Mean Corpuscular Hemoglobin Concent 34.3 32.0-36.0 g/dL Red Cell Distribution Width 13.6 11.8-14.3 % Platelet Count 292 140-450 10^3/uL Mean Platelet Volume 9.4 6.9-10.8 fL Neutrophils (%) (Auto) 78.2 37.0-80.0 % Lymphocytes (%) (Auto) 16.2 10.0-50.0 % Monocytes (%) (Auto) 4.9 0.0-12.0 % Eosinophils (%) (Auto) 0.5 0.0-7.0 % Basophils (%) (Auto) 0.2 0.0-2.0 % Neutrophils # (Auto) 7.8 1.6-8.6 10 ^3/uL Lymphocytes # (Auto) 1.6 0.4-5.4 10 ^3/uL Monocytes # (Auto) 0.5 0-1.3 10 ^3/uL Eosinophils # (Auto) 0 0-0.8 10 ^3/uL Basophils # (Auto) 0 0-0.2 10 ^3/uL Nucleated Red Blood Cells 0.1 % Prothrombin Time 9.6 9.3-11.8 sec Prothrombin Time INR 0.90 0.9-1.15 Activated Partial Thromboplast Time 26.5 24.5-34.5 SEC Sodium Level 139 136-145 mmol/L Potassium Level 3.9 3.5-5.1 mmol/L Chloride Level 106 98-107 mmol/L Carbon Dioxide Level 20 20-31 mmol/L Anion Gap 13 5-15 Blood Urea Nitrogen 7 L 9-23 mg/dL Creatinine 0.63 0.550-1.02 mg/dL Glomerular Filtration Rate Calc 126 >90 mL/min BUN/Creatinine Ratio 11.1 10.0-20.0 Serum Glucose 87 74-106 mg/dL Calcium Level 9.7 8.7-10.4 mg/dL Total Bilirubin 0.3 0.2-1.0 mg/dL Aspartate Amino Transferase (AST) 20 13-40 U/L Alanine Aminotransferase (ALT) 14 7-40 U/L Alkaline Phosphatase 192 H 46-116 U/L Total Protein 7.4 5.7-8.2 g/dL Albumin 4.2 3.2-4.8 g/dL Treponema pallidum Antibody Non-reactive Negative Hepatitis C Antibody Negative Negative Urine Color Yellow Yellow Urine Clarity Turbid H Clear Urine pH 6.5 5.0-9.0 Urine Specific [place] 1.020 1.001-1.035 Urine Protein 1+ H Negative Urine Ketones Negative Negative Urine Blood Negative Negative /uL Urine Nitrite Negative Negative Urine Bilirubin Negative Negative Urine Urobilinogen Normal Negative mg/dL Urine Leukocyte Esterase 1+ Negative /uL Urine RBC 2 0 - 4 /hpf Urine Microscopic WBC 3 0-5 /HPF Urine Squamous Epithelial Cells Mod <5 /hpf Urine Bacteria Few H None Seen /hpf Urine Mucus Few None Seen Urine Glucose Normal Normal mg/dL Urine Opiates Screen Neg NEGATIVE Urine Fentanyl Screen Neg NEGATIVE Urine Barbiturates Screen Neg NEGATIVE Urine Phencyclidine Screen Neg NEGATIVE Urine Amphetamines Screen Neg NEGATIVE Urine Benzodiazepines Screen Neg NEGATIVE Urine Cocaine Screen Neg NEGATIVE Urine Cannabinoids Screen Neg NEGATIVE Assessment Assessment 25yo IUP@39.5wks Induction of Labor GDM, A2 Category II EFM SROM, clear fluid GBS negative Plan Plan Start IV pitocin when Category I EFM monitoring per order Amnioinfusion infusing NS@125ml/hr Blood glucose check q2hrs Pain mgmt - epidural in place Limit SVE unless necessary Intrauterine resuscitation PRN Anticipate CNM co-managing with Dr. Chin Plan discussed with: Patient, Spouse Visit Coding OBGYN Date of Service: Aug 17, 2025 Billing Provider: HAILEY PALUMBO CNM VP STRATEGY Common Visit Codes: [id number] INP/OBS CARE(MOD) RADHA DOHERTY STUDENTMDW Aug 17, 2025 05:46
[2025-08-17] MEDS ORDERED: MORPHINE SULF PF 5 MG/10 ML VIAL ONE (07:38)
[2025-08-17] MEDS ORDERED: fentaNYL CITRATE 100 MCG/2 ML VL ONE (07:38)
[2025-08-17] MEDS ORDERED: METOCLOPRAMIDE HCL 5MG/ml INJ 2ml VIAL ONE (07:42)
--- NOTE | 2025-08-17 07:47 | DVHHP ---
CHIEF COMPLAINT: Recurrent variable decelerations and late decelerations, intolerance to labor. HISTORY OF PRESENT ILLNESS: The patient is a 25-year-old 1, para 0 with EDC 08/19/2025, estimated gestational age of 39+ weeks, admitted for induction of labor due to GDMA2. The patient received Cytotec followed by spontaneous rupture of membranes, was started having decelerations. Baby is at -2 station. Exam has not changed. The patient cannot tolerate any Pitocin. She also responds to contractions with late decelerations and deep variable decelerations. Amnioinfusion did not help. Subsequently, the patient is being taken for primary . PAST MEDICAL HISTORY: None. PAST SURGICAL HISTORY: None. SOCIAL HISTORY: None. FAMILY HISTORY: None. OB-OTOLOGIST HISTORY: Primigravid. PHYSICAL EXAMINATION: VITAL SIGNS: Stable, afebrile. HEENT: Within normal limits. CARDIOVASCULAR: Regular rate and rhythm. LUNGS: Clear to auscultation. BREASTS: Symmetrical, no masses. ABDOMEN: Gravid. Positive heart. PELVIC: 6, -2, 60%. EXTREMITIES: No clubbing, cyanosis or edema. IMPRESSION: ? Intrauterine at 39 weeks with GDMA2. ? Nonreassuring heart tracing. ? Recurrent decelerations. PLAN: Primary low transverse . Informed consent obtained. Risks and complications of surgery including infection, bleeding, hematoma formation, injury to bowel or bladder, surrounding organ, possibility of DVT, pulmonary embolism, and risks of anesthesia were discussed with the patient. Options were reviewed. All questions answered. The patient fully understands. She wishes to proceed with planned procedure. DO SANFORD Moody TID: [id number] RECEIPT: [id number]
[2025-08-17] MEDS: CARBOPROST TROMETHAMINE 250 MCG/1ML VIAL IM ONE (07:58)
[2025-08-17] MEDS ORDERED: ONDANSETRON HCL 4 MG/2 ML VIAL ONE (07:58)
[2025-08-17] MEDS ORDERED: OXYTOCIN 10UNIT/ML 1ML VIAL ONE (08:12)
[2025-08-17] MEDS ORDERED: KETOROLAC TROMETH 30 MG/ML 1ML VIAL ONE (08:16)
[2025-08-17] MEDS ORDERED: ONDANSETRON HCL 4 MG/2 ML VIAL IV PRN (09:00)
[2025-08-17] MEDS ORDERED: HYDROmorphone HCL 2 MG/ML VL/or syr IV PRN (09:00)
[2025-08-17] MEDS ORDERED: NALOXONE HCL 0.4 MG/ML VIAL IV PRN (09:00)
[2025-08-17] MEDS ORDERED: KETOROLAC TROMETH 30 MG/ML 1ML VIAL IV PRN (09:00)
--- NOTE | 2025-08-17 15:08 | DVHOP2 ---
Operative Report DATE OF OPERATION: 08/17/25 PREOPERATIVE DIAGNOSES: Term with gdma2, fetus at risk nonreassuring fht ,induction of labor failed POSTOPERATIVE DIAGNOSES: op,nuchal cord SURGEON: Yesenia Chin D.O./erik ANESTHESIOLOGIST: alberto TYPE OF ANESTHESIA : spinal CONSENT: The patient was informed of the risks and benefits of the procedure. The patient was informed of the risks and benefits of the procedure. These include but are not limited to , complications of anesthesia, postoperative infection, incomplete relief of symptoms, recurrence of symptoms, damage to blood vessels, nerves and tendons, deep venous thrombosis, pulmonary embolism and possible need for repeat surgery in the future. FINDINGS: Baby [b] with Apgars of [8] and [9]. Grossly normal appearing tubes and ovaries.op,nuchal cord,wt 7-1 PROCEDURES: Primary low transverse section. PROCEDURE IN DETAIL: The patient was taken to the operating room. She already had an epidural in place. She was then placed in supine position with a leftward tilt. A Pfannenstiel skin incision was made 2 cm above the symphysis pubis. This incision was carried to the underlying layer of fascia. The fascia was nicked in the midline. The incision was extended laterally. The superior aspect of the fascial incision was grasped and elevated. The same procedure was done to the inferior aspect of the fascial incision. The rectus muscles were then in the midline. Peritoneum was identified and entered. Peritoneal incision was extended superiorly and inferiorly with good visualization of the bladder. Bladder blade was inserted. Vesicouterine peritoneum was identified and entered. Lower uterine segment was incised in a transverse fashion. The infant was delivered from vertex presentation. Infant was baby [b] with Apgars [8] and [9]. Placenta was then removed manually. Uterus was exteriorized and cleared of all clots and debris. The incision was repaired using 0 Vicryl in a double-layered fashion. No bleeding was noted. Uterus was then returned to the abdomen. The gutters were cleared off all clots and debris. Peritoneum was closed using 0 Vicryl, fascia was closed using 0 Maxon, and skin was closed using rosario. The patient t olerated the procedure well. She was taken to the recovery room in stable condition. ESTIMATED BLOOD LOSS: Estimated blood loss was noted to be 800 mL. Visit Coding OBN Date of Service: Aug 17, 2025 Billing Provider: YESENIA CHIN DO PEDIATRIC DIETICIAN Common Visit Codes: [id number] OBS CARE (HIGH) PEDIATRIC DIETICIAN Procedure Codes: [id number] DELIVERY ONLY YESENIA CHIN DO Aug 17, 2025 15:08
--- NOTE | 2025-08-17 15:10 | POSTOP ---
Post-Operative Note Post-Operative Note Preop Diagnosis term preg iol ,fetus at risk,gdma2 Postop Diagnosis: same,op,nuchal cord Operation performed pltcs Specimen baby boy,apgars 8-9,efw 7-1,nuchal cord Anesthesia: Regional Anesthesiologist: alberto Blood Loss(fluid mgmt) 800ml Surgeon Dolly Chin Medical Lab Technologist erik Implant na Complications & Mgmt none Date 08/17/25 Time 15:08 Visit Coding OBGYN Date of Service: Aug 17, 2025 Billing Provider: DOLLY CHIN DO RECRUIT INSTRUCTOR Common Visit Codes: [id number] OBS CARE (HIGH) RECRUIT INSTRUCTOR Procedure Codes: [id number] DELIVERY ONLY DOLLY CHIN DO Aug 17, 2025 15:10
[2025-08-17] MEDS: ACETAMINOPHEN IV 1000 MG/100ML (10MG/ML) IV PRN (15:27)
[2025-08-17] MEDS ORDERED: PREN-96 PO (18:30)
[2025-08-17] MEDS ORDERED: DOCU-94 PO (18:31)
[2025-08-17] MEDS ORDERED: IBUP-1455 PO (18:31)
[2025-08-17] MEDS ORDERED: HYDR-4902 PO (18:31)
[2025-08-17] MEDS: diphenhydrAMINE HCL 50 MG/1 ML VL IV PRN (20:29)
[2025-08-18] VITALS (11 sets, daily range): BP systolic 104–126; BP diastolic 62–80; PULSE 73–96; RESP 16–18; TEMP 98–98.6; O2SAT 96–98
--- NOTE | 2025-08-18 00:10 | DVHPN2 ---
Progress Note Date Seen: Aug 18, 2025 Subjective S: bleeding is less, tolerating clear liquids, denies lightheaded/dizziness, pain well controlled with medications, due to void after silveira removal, no flatus/BM yet, ambulating well, vital signs Vital Sign Date Time Temp Pulse Resp B/P (MAP) Pulse Ox O2 Delivery O2 Flow Rate FiO2 08/17/25 23:54 61 18 08/17/25 23:05 98.1 130/68 (88) 97 98.1 08/17/25 18:30 Room Air 08/17/25 08:41 0 08/17/25 08:41 97 Total Intake and Output 08/17/25 08/17/25 08/18/25 15:00 23:00 07:00 Output Total 325 ml 250 ml 300 ml Balance -325 ml -250 ml -300 ml medications Current Medications Medications Dose Ordered Sig/Fidelia Route Start Time Stop Time Status Last Admin Dose Admin Lactated Ringer's 1,000 ml @ 125 mls/hr Q8H IV 08/16/25 16:15 08/16/25 17:48 125 MLS/HR Witch Tashia 1 pad PRN PRN TOP 08/16/25 16:15 08/17/25 01:23 1 PAD Sodium Lauryl Sulfate 240 ml PRN PRN TOP 08/16/25 16:15 08/17/25 01:23 240 ML Benzocaine 1 applic PRN PRN TOP 08/16/25 16:15 08/17/25 01:23 1 APPLIC Butorphanol Tartrate 2 mg Q4HPRN PRN IV 08/16/25 16:15 Misoprostol 50 mcg Q4HPRN PRN PO 08/16/25 16:15 08/16/25 21:56 50 MCG Lidocaine HCl 20 ml ONCE PRN IJ 08/16/25 16:15 08/17/25 01:23 20 ML Nalbuphine HCl 10 mg Q4HP PRN IV 08/17/25 01:15 08/17/25 01:22 10 MG Oxytocin 1,000 ml @ 6 ml/hr Q24H IV 08/17/25 03:30 Terbutaline Sulfate 0.25 mg ONCE PRN SC 08/17/25 03:30 Diphenhydramine HCl 25 mg Q4HP PRN IV 08/17/25 09:00 08/17/25 20:29 25 MG Ketorolac Tromethamine 30 mg Q6HP PRN IV 08/17/25 09:00 08/22/25 08:59 Ondansetron HCl 4 mg Q4HP PRN IV 08/17/25 10:00 08/17/25 22:06 4 MG Ephedrine Sulfate 10 mg [id number] PRN IV 08/17/25 10:00 08/18/25 09:59 Acetaminophen 1,000 mg Q8HPRN PRN IV 08/17/25 10:00 08/18/25 09:59 08/17/25 15:27 1,000 MG Cefazolin Sodium 50 ml @ 100 mls/hr Q8H IV 08/17/25 11:30 08/17/25 20:28 100 MLS/HR laboratory and microbiology Laboratory Tests 08/16/25 16:23 Test 08/16/25 16:23 Range/Units Serum Glucose 87 74-106 mg/dL Objective O: VSS Chest: heart sounds normal and lung sounds clear bilaterally Abd: soft, non-tender, fundus at U/firm/midline, active bowel sounds, no rebound or guarding Incision: sylke dressing open to air, clean/dry/intact Ext: Non-tender, No edema, 2+ BLE DTRs Lochia: minimal See lab results Problems(with codes): (1) S/P primary low transverse Assessment/Plan A: 25yo now POD#1 s/p primary Rh+ Rubella Immune P: continue with routine post-op PP care Plan discussed with: Patient, Spouse Visit Coding OBGYN Date of Service: Aug 18, 2025 Billing Provider: HAILEY PALUMBO CNM DIRECTOR OF FIRST IMPRESSIONS Common Visit Codes: [id number] INP/OBS CARE(HIGH) HAILEY PALUMBO CNM Aug 18, 2025 00:10
[2025-08-18] MEDS ORDERED: HYDROcodone-ACET 5/325MG TAB PO PRN (06:45)
[2025-08-18 07:09] LABS: Hematocrit 35.2 % (36.0-46.0); Hemoglobin 12.1 g/dL (12.2-16.2); Mean Corpuscular Hemoglobin 30.0 pg (28.0-32.0); Mean Corpuscular Volume 87.4 fL (80.0-100.0); Nucleated Red Blood Cells % 0.0 %
[2025-08-18] MEDS: HYDROcodone-ACET 5/325MG TAB PO PRN (07:11)
[2025-08-18 07:13] LABS: Alanine Aminotransferase 13 U/L (7-40); Anion Gap 12 (5-15); BUN/Creatinine Ratio 14.8 (10.0-20.0); Calcium 9.1 mg/dL (8.7-10.4); Carbon Dioxide 22 mmol/L (20-31); Chloride 104 mmol/L (98-107); Glucose 85 mg/dL (74-106); Potassium 3.9 mmol/L (3.5-5.1); Sodium 138 mmol/L (136-145); Total Protein 6.2 g/dL (5.7-8.2)
[2025-08-18 07:15] LABS: Albumin 3.5 g/dL (3.2-4.8); Bilirubin, Total 0.3 mg/dL (0.2-1.0)
[2025-08-18 07:17] LABS: Alkaline Phosphatase 146 U/L (46-116); Blood Urea Nitrogen 8 mg/dL (9-23)
[2025-08-18] MEDS: DOCUSATE SOD 100 MG CAP PO SCH (10:07)
[2025-08-18] MEDS: SIMETHICONE 80 MG CHEWABLE TABLET PO SCH (11:37)
[2025-08-18] MEDS: IBUPROFEN 800 MG TAB PO PRN (11:59)
[2025-08-19 03:30] VITALS: BP 105/66; PULSE 81; RESP 17; TEMP 98.7; O2SAT 97
--- NOTE | 2025-08-19 06:56 | DVHPN2 ---
Progress Note Date Seen: Aug 19, 2025 Subjective *primer charger at bedside interpreting* Ana Cristina is resting in bed with baby in her arms. Partner asleep at bedside. Patient is excited to go home today and feels prepared. SUBJECTIVE: -Lochia minimal -Regular diet well tolerated. -Ambulating and voiding well w/o feeling dizzy or lightheaded -Pain relieved with oral medication PRN -Passing flatus but no BM yet. -Combofeeding w/o problem -Desires and requests to be discharged home today (08/19) vital signs Vital Sign Date Time Temp Pulse Resp B/P (MAP) Pulse Ox O2 Delivery O2 Flow Rate FiO2 08/19/25 03:30 98.7 81 17 105/66 (79) 97 98.7 08/18/25 19:00 Room Air 08/17/25 08:41 0 08/17/25 08:41 97 Total Intake and Output 08/18/25 08/18/25 08/19/25 15:00 23:00 07:00 Output Total 800 ml Balance -800 ml medications Current Medications Medications Dose Ordered Sig/Fidelia Route Start Time Stop Time Status Last Admin Dose Admin Lactated Ringer's 1,000 ml @ 125 mls/hr Q8H IV 08/16/25 16:15 08/16/25 17:48 125 MLS/HR Juanito Lao 1 pad PRN PRN TOP 08/16/25 16:15 08/17/25 01:23 1 PAD Sodium Lauryl Sulfate 240 ml PRN PRN TOP 08/16/25 16:15 08/17/25 01:23 240 ML Benzocaine 1 applic PRN PRN TOP 08/16/25 16:15 08/17/25 01:23 1 APPLIC Diphenhydramine HCl 25 mg Q4HP PRN IV 08/17/25 09:00 08/17/25 20:29 25 MG Ketorolac Tromethamine 30 mg Q6HP PRN IV 08/17/25 09:00 08/22/25 08:59 Ondansetron HCl 4 mg Q4HP PRN IV 08/17/25 10:00 08/17/25 22:06 4 MG Docusate Sodium 100 mg Q12HR PO 08/18/25 10:00 08/18/25 21:23 100 MG Dimethicone 80 mg QID PO 08/18/25 12:00 08/18/25 23:41 80 MG Ibuprofen 800 mg Q8HP PRN PO 08/18/25 06:45 08/18/25 21:24 800 MG Acetaminophen/ Hydrocodone Bitart 1 tab Q4HPRN PRN PO 08/18/25 06:45 Acetaminophen/ Hydrocodone Bitart 2 tab Q4HPRN PRN PO 08/18/25 06:45 08/18/25 23:41 2 TAB laboratory and microbiology Laboratory Tests 08/18/25 06:34 Test 08/18/25 06:34 Range/Units Serum Glucose 85 74-106 mg/dL Objective OBJECTIVE: -A&O x4. No apparent distress. Affect appropriate -Afebrile, VSS -Chest: heart and lung sounds normal. -Breasts: Nipples intact w/o cracks or soreness -Abdomen: normal BS, soft, non-tender, no rebound or guarding, fundus firm @ U- 1, -Lower abdominal incision site with dressing dry and intact. No edema, erythema or induration -Extremities: no edema or tenderness Problems(with codes): (1) S/P primary low transverse Assessment/Plan ASSESSMENT 25 yo now Post operative & ppd # 2 s/p Primary Section for intolerance, doing well. Blood Type: O+ Combo feeding Rubella Immune PLAN -Continue pain management with oral medications as previously ordered -Increase fluid intake and fiber in diet to promote regular bowel movements, Laxative PRN -Educated patient on self-care and warning signs to watch for, including PPH, PPD, infection, and pre-eclampsia. Answered all patient questions and concerns. Patient verbalizes understanding -Continue routine care and anticipate discharge today around 2pm Plan discussed with: Patient Visit Coding OBGYN Date of Service: Aug 19, 2025 Billing Provider: MARISOL BAIRD CNM CHART PICKER Common Visit Codes: [id number] INP/OBS CARE (MOD) MARISOL BAIRD CNM Aug 19, 2025 06:56
--- NOTE | 2025-08-19 06:59 | DVHDS2 ---
Obstetrics Discharge Summary Obstetrics Discharge Summary Date of Admission: Aug 16, 2025 Date of Discharge: Aug 19, 2025 Reason For Admission: Induction of Labor (for GDMA2. Patient admitted for induction. Recurrent late and variable decels noted. Patient consented to primary c/s. See PeriOp note for details. course without complication; all milestones met) Intrapartum Procedures: (Low Cervical Transverse) Discharge Diagnosis: Term -Delivered Discharge Information: Activity (Unrestricted. Advance as tolerated. Balance activities with rest periods. No heavy lifting, pushing or straining. Pelvic rest x 6 weeks), Diet (Routine regular diet rich in fiber, protein, iron and vitamin C with adequate fluid intake.), Medications (See med list), Instructions (Routine), Discharge to (Home), Accompanied by (partner), Discarge date ( 5) Discharge Care Plan Instructions - self care instructions given - emergency signs and symptoms including but not limited to pre-eclampsia precautions and signs of infection, PPH & of PPD reviewed with patient. -Follow up with OB Provider in 1 week for incision check and again at 6 weeks Visit Coding OBGYN Date of Service: Aug 19, 2025 Billing Provider: MARISOL BAIRD CNM [employer] Common Visit Codes: 32068-SRJ/OBS DISCH DAY >30MIN MARISOL BAIRD CNM Aug 19, 2025 06:59
[2025-08-19 07:00] VITALS: BP 112/68; PULSE 83; RESP 17; TEMP 98.7; O2SAT 97
[2025-08-19 11:30] VITALS: BP 110/62; PULSE 88; RESP 17; TEMP 98.4; O2SAT 97
== END 2025-08-19 15:03 | disposition home or self-care (01) | DRG 788 ==
LOC: UNDOADMOB 14:08 → LDRP 14:08 → OBSVTOIN 15:26 → LDRP 15:52
PROVIDERS: ADMIT Obstetrics & Gynecology; ATTEND Obstetrics & Gynecology
PROC: 10D00Z1 Extraction of Products of Conception, Low, Open Approach (ICD-10-PCS; principal; 2025-08-17 07:38)
DX: O69.81X0 Labor and delivery complicated by cord around neck, without compression, not applicable or unspecified (principal); O61.9 Failed induction of labor, unspecified; O24.424 Gestational diabetes mellitus in childbirth, insulin controlled; Z37.0 Single live birth; Z3A.39 39 weeks gestation of pregnancy; O76 Abnormality in fetal heart rate and rhythm complicating labor and delivery
CPT/HCPCS: 36415; 62282; 76819; 80053; 80307; 81001; 81002; 82948; 82962; 85025; 85610; 85730; 86780; 86803; 86850; 86900; 86901; 94760; 94762; 96360; 96361; 96374; 96375; A4344; G0378; J0131; J1885; J2405; J2590